=== PATIENT | male | born 1955 ===

== ENCOUNTER → 2018-08-05 | Outpatient (CLI) | payer OTHER ==
[~2018-08-05] VITALS: Ht 190.5 cm; Wt 98.5 kg
[~2018-08-05] MED LIST: AZITHROMYCIN 2250 MG PO; BENZONATATE200 MG PO; IBUPROFEN 600600 M1 PO; LYRICA 75 MG CA75 MG PO; ZYRTEC10 M5 PO
[2018-08-05 10:09] VITALS: BP 128/88
--- NOTE | 2018-08-05 10:13 | NUR ---
Pain Clinic Assessment: 1. History of Osteoarthritis: History of Rheumatoid Arthritis: 2. Height: 6 ft. 3 in. 190.5 cm. Weight: 217.2 lb. oz. 98.521 kg. Patient's BMI: 27.1 3. Vital Signs: BP: 128/88 Pulse: 86 Resp: 16 Temp: 02 Sat: 99 ECG Mon: 4. Pain Intensity: 3 5. Fall Risk: Dizziness: N Needs help standing or walking: N Fallen in the last 3 months: Y Fall risk comments: 6. Patient on Blood Thinner: None 7. History of Hypertension: N 8. Opioid Therapy greater than 6 weeks: N Opiate Contract Signed: 9. Risk Assessment Tool Provided: LOW 10. Functional Assessment Tool: 11. Recreational Drug Use: Never Drug Type: Tobacco Use: Never Smoker Tobacco Type: Amount or Packs/day: How Many Years: Alcohol Use: Yes Frequency: Weekly Quant: 3-4
--- NOTE | 2018-08-07 16:49 | HPC ---
[facility] [address] [place] [address] PAIN MANAGEMENT CONSULTATION Name: JAIRO BEJARANO Room #: REG Kesha MJohanny.#: [id number] Admission: 08/05/18 Attend Phys: Philip Olmos MD Discharge: Date of : 53 Report #: [id number] THIS REPORT FOR: //name// CC: Suman Olmos DATE OF SERVICE: 08/05/2018 PRIMARY CARE PHYSICIAN: Suman Jasso MD. CHIEF COMPLAINT: Pain down in my right leg. HISTORY OF PRESENT ILLNESS: The patient is a 63-year-old gentleman who has been referred to the pain clinic because of right leg pain. The patient states that he was playing tennis. He went for a shot. Noticed some pain and discomfort in the lower portion of his back. This was on about 07/06/2018. Noted that he continued to have back problems for some time. Noted significant problems walking and has had some weakness in his right leg. States that he almost fell a number of times. Overall, that portion has improved somewhat. Notes that the pain is worse if he is standing still. Sometimes improves when he is sitting. Describes it as burning, aching and 3/10 at this juncture. He has not had pain like this before. He did go to see a chiropractor. He continues to have pain, which is somewhat problematic. The patient and his have a planned vacation in about 3 weeks where they are going on a cruise. He would like to be in better condition by that time. He has had some problems with an upper respiratory problem. States that he was coughing and that he was spitting up some brownish phlegm. States that he talked to his physician and was provided a Z-AGUSTIN antibiotic. He is not sure how helpful that has been. His has noted some redness on the side of his face. He is not having any problems with shortness of breath, but did note some splotches on his face. She is not sure whether or not that splotchiness is as a result of use of that Z-AGUSTIN medication. We have explained to the patient that if he is on an antibiotic, we generally do not perform epidural steroid injections given the possibility of decreasing his immunity. At this point, he feels that he is not getting any significant benefit from the Z-AGUSTIN and declines continued use of it. He will call his primary care physician. He notes that his pain has caused some problems with sleeping. He is awakened from sleep from this. ALLERGIES: INTRAVENOUS IODINE. CURRENT MEDICATIONS: Azithromycin 250 mg, ibuprofen 600 mg, benzonate 200 mg b.i.d., Zyrtec 10 mg daily, Lyrica 75 mg. PAST SURGICAL HISTORY: Hernia repair in 2015, thoracotomy in 1983. 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 REVIEW OF SYSTEMS: Generally good health, fatigue, weakness, awakens at night to urinate. LABORATORY DATA: MRI of the lumbar spine dated 07/31/2018: 1. L3-L4, there is a mild ventral endplate osteophyte formation. Mild left foramen/extra foraminal disk bulging resulting in mild narrowing of the anterior-inferior left neural foramen. Foraminal disk bulging approaches the anterior-inferior surface of the left L3 nerve root. The right neural foramen is normal in appearance. There is no focal disk herniation or central canal stenosis. Thecal sac 1.3 cm AP. 2. L4 right midline posterior to the L4 vertebral body. There is a free epidural extruded disk fragment measuring 0.7 x 1.4 x 1.8 cm AP/transverse/CC. This appears to emanate from the L4-L5 intervertebral disk and results in contour deformity of the ventral thecal sac. 3. L4-L5, there is mild bilateral facet and ligamentum flavum hypertrophic change. Mild annular disk bulge is noted with a right lateral recess disk extrusion migrating cephalad. Right foraminal/extraforaminal disk bulging results in moderate narrowing of the medial aspect of the right neural foramen with possible impingement on the undersurface of the right foramen L4 nerve root. There is narrowing of the right lateral recess. No central canal stenosis is noted. AP diameter 1.1 cm thecal sac. 4. L5-S1, there is a mild disk space narrowing and Modic type 2 endplate degenerative changes. Minimal annular disk bulge is noted. Without disk herniation, central canal stenosis or left foraminal narrowing. Mild right foraminal/extraforaminal disk bulge and endplate osteophyte formation results in mild narrowing of the anterior-inferior right neural foramen. Without MRI evidence of right foraminal L5 nerve root impingement, thecal sac 1.4 cm AP. PAIN CLINIC ASSESSMENT/PQRS: 1. History of osteoarthritis. The patient is not being treated for osteoarthritis or rheumatoid arthritis. 2. Height 6 feet 3 inches, weight 217 pounds, BMI is 27.1. 3. Vital Signs: Blood pressure 128/88, pulse 86, respiratory rate 16, room air saturation 99%. 4. Pain intensity, 3/10. 5. Fall risk. The patient has fallen on a number of occasions because of weakness in his right leg. 6. Blood thinner. The patient is not on a blood thinning medication. 7. Hypertension. The patient is not being treated for hypertension. 8. Opioid greater than 6 weeks. The patient is not on an opioid regimen. 9. Risk assessment tool, low for opioid use. 10. Functional assessment tool, . 11. Recreational drug use. The patient denies use of recreational drugs. 12. Tobacco: The patient denies use of tobacco. [facility] [address] [place] [address] PAIN MANAGEMENT CONSULTATION Name: JAIRO BEJARANO Room #: REG ZARI Murphy#: [id number] Admission: 08/05/18 Attend Phys: Philip Olmos MD Discharge: Date of : 53 Report #: [id number] 13. Alcohol: The patient drinks 3-4 alcoholic beverages weekly. PHYSICAL EXAMINATION: GENERAL: The patient is a well-developed, well-nourished, white male. Appears his stated age. He is alert and oriented x 3. His affect is appropriate. Speech is fluent. HEENT: Normocephalic, atraumatic. Extraocular eye muscles intact. Sclerae nonicteric. Mucous membranes moist. NECK: Without adenopathy or JVD. EXTREMITIES: Upper extremity muscle strength judged to be 5/5 for the major muscle groups in the upper extremity. The patient without significant scoliosis, kyphosis or lordosis. The patient has pain and discomfort in the lower portion of his back with pain that is radiating down in the right L4-L5 dermatomal distribution and down into the area of his "shins." States that this area is numb. Notes that he is having some pain and discomfort with movement. Deep tendon reflexes in the upper extremities judged to be +2 for the biceps bilaterally, +1 for the triceps and for the brachioradialis, the deep tendon reflexes on the patella on the left is +2, absent on the right. Deep tendon reflexes +1 on the right ankle and left ankle. IMPRESSION: Lumbar radiculopathy L4-L5 dermatomal distribution with findings of a fragment in the L4-L5 dermatomal distribution. A model was used to indicate the area of probable pathology. Models were used to delineate the patient's problem. He and his were explained and that they understand. RECOMMENDATIONS: We will return to the pain clinic at which time he will undergo a lumbar epidural steroid injection to help with the pain, which he is experiencing on the right side. The patient has sensory changes of decreased muscle strength. Has noted some weakness in his right leg, which has almost given out on a number of occasions. Has numbness and tingling in the anterior portion of his calf with an absence of a patellar reflex. The patient is reasonably fit. He has been doing exercises and stretching. He has undergone an MRI, which shows the evidence of a disk fragment. The patient has been using nonsteroidal anti-inflammatory medications. He will return, at which time he will undergo an epidural steroid injection. He has fallen a number of times because of the weakness in his right leg. <ELECTRONICALLY SIGNED> By: Philip Olmos MD 08/07/18 [id number] Philip Olmos MD /SUSAN
== END ==
LOC: PAIN 07:07
DX: M54.16 Radiculopathy, lumbar region (principal); Z79.899 Other long term (current) drug therapy

== ENCOUNTER → 2018-08-07 | Outpatient (CLI) | payer OTHER ==
[~2018-08-07] VITALS: Ht 190.5 cm; Wt 86.2 kg
--- NOTE | ~2018-08-07 | HPC ---
[facility] [place] [address] [address] PAIN MANAGEMENT CONSULTATION Name: JAIRO BEJARANO Room #: REG ZARI Danyelle.#: [id number] Admission: 08/07/18 Attend Phys: Philip Olmos MD Discharge: Date of : 53 Report #: [id number] THIS REPORT FOR: //name// CC: Suman Olmos DATE OF SERVICE: 08/07/2018 FOLLOWUP COMPLAINT: Here for an epidural injection, having pain down in my right leg. HISTORY: The patient is a 63-year-old gentleman, who has been followed in the pain clinic because of pain involving his right leg. He was playing tennis as you may recall. After making a certain shot, he noted pain and discomfort in his back. This was on 07/06/2018. The pain has continued to be problematic. He is showing some signs of improvement. He does have weakness in his right leg. He almost fell a number of times because of the weakness. He has returned to the pain clinic for an epidural steroid injection. As you may recall, MRI showed some fragment at the L4-L5 dermatomal area. CURRENT MEDICATIONS: Ibuprofen 600 mg, benzonatate 200 mg b.i.d., Zyrtec 10 mg, and Lyrica 75 mg. ALLERGIES: INTRAVENOUS IODINE. PAIN CLINIC ASSESSMENT AND PQRS: 1. History of osteoarthritis. The patient is not being treated for osteoarthritis. 2. He is not being treated for rheumatoid arthritis. 3. Pain intensity is 3/10. 4. Fall risk. The patient has not fallen since we saw him last. 5. Blood thinner. The patient is not on a blood thinning medication. 6. Hypertension. The patient is not being treated for hypertension. 7. Opioids greater than 6 weeks. The patient is not receiving opioid medication on a regular basis. 8. Risk assessment tool, low for opioid use. 9. Functional assessment tool, . 10. Drugs. The patient denies use of recreational drugs. 11. Tobacco: The patient has never smoked. 12. Alcohol. The patient drinks alcoholic beverages on occasion. PHYSICAL EXAMINATION: GENERAL: The patient is a well-developed, well-nourished white male. He appears his stated age. He is alert and oriented x 3. His affect is appropriate. Speech is fluent. Height is 6 feet 3 inches, weight is 190 pounds, and BMI [place] 23[place] [address] PAIN MANAGEMENT CONSULTATION Name: JAIRO BEJARANO Room #: REG ZARI BasesttMj#: [id number] Admission: 08/07/18 Attend Phys: Philip Olmos MD Discharge: Date of : 53 Report #: [id number] VITAL SIGNS: Blood pressure is 121/92, pulse is 68, respiratory rate is 16, and room air saturation is 100%. HEENT: Normocephalic, atraumatic. Extraocular eye muscles intact. Sclerae nonicteric. Mucous membranes are moist. LUNGS: Clear to auscultation without rhonchi or rales. EXTREMITIES: Upper extremity muscle strength is judged to be 5/5 for the major muscle groups. The patient is without significant scoliosis, kyphosis, or lordosis. He has pain that is radiating down in the L4-L5 dermatomal distribution on his right leg to the level of his (shins). IMPRESSION: Lumbar radiculopathy in the L4-L5 dermatomal distribution secondary to a fragment in the low back area. RECOMMENDATIONS: We have discussed treatment options with the patient. The patient has returned to the pain clinic. Risks and benefits of an epidural steroid injection were discussed. They include but are not limited to infection, worsening of pain, no improvement in pain, bleeding, nerve damage, or spinal headache. The patient elects to proceed. PROCEDURE NOTE: The patient was taken to the procedure area. He was assisted in getting on the examination table. His back was sterilely prepped with a Betadine solution. Fluoroscopy using anterior, posterior as well as lateral viewing were implemented. A 25-gauge needle was then used to infiltrate the area. At the L4-L5 interspace, a 17-gauge Tuohy with loss of resistance technique was used to gain access to the epidural space using the right paramedian approach. A 0.25% bupivacaine was infiltrated. A 17-gauge Tuohy with loss of resistance technique was used to gain access to the epidural space. Aspiration was negative. A total of 80 mg Depo-Medrol, 40 mg of triamcinolone, and 2 mL of 0.25% bupivacaine was injected. The patient tolerated the procedure well. There were no complications. He remained in the pain clinic for an appropriate amount of time. He will follow up in the future as needed. We would like to thank you for letting us to participate in his care. We hope he continues to improve. By: [id number] Philip Olmos MD /SUSAN
[2018-08-07 13:31] VITALS: BP 121/82
--- NOTE | 2018-08-07 13:48 | NUR ---
Pain Clinic Assessment: 1. History of Osteoarthritis: History of Rheumatoid Arthritis: 2. Height: 6 ft. 3 in. 190.5 cm. Weight: 190.0 lb. oz. 86.184 kg. Patient's BMI: 23.7 3. Vital Signs: BP: 121/82 Pulse: 68 Resp: 16 Temp: 02 Sat: 100 ECG Mon: 4. Pain Intensity: 3 5. Fall Risk: Dizziness: N Needs help standing or walking: N Fallen in the last 3 months: N Fall risk comments: 6. Patient on Blood Thinner: None 7. History of Hypertension: N 8. Opioid Therapy greater than 6 weeks: N Opiate Contract Signed: 9. Risk Assessment Tool Provided: LOW 10. Functional Assessment Tool: 11. Recreational Drug Use: Never Drug Type: Tobacco Use: Never Smoker Tobacco Type: Amount or Packs/day: How Many Years: Alcohol Use: Yes Frequency: Quant:
== END | disposition home or self-care (01) ==
LOC: PAIN 07:25
DX: M54.16 Radiculopathy, lumbar region (principal); M19.90 Unspecified osteoarthritis, unspecified site; I10 Essential (primary) hypertension; Z79.899 Other long term (current) drug therapy; Z88.8 Allergy status to other drugs, medicaments and biological substances